=== PATIENT | male | born 1970 | race Caucasian/White ===

== ENCOUNTER 2018-11-21 17:09 | Inpatient (IN) | payer MEDICAID ==
[~2018-11-21] VITALS: Ht 175.3 cm; Wt 95.3 kg
[2018-11-21] MEDS ORDERED: MELATONIN 5 MG TABLET PO PRN (18:00)
[2018-11-21 19:55] VITALS: BP 159/96
[2018-11-21] MEDS: ATORVASTATIN CALCIUM 40 MG TABLET PO SCH (20:48)
[2018-11-21] MEDS: HEPARIN SODIUM,PORCINE 5,000 UNITS/ML VIAL SQ SCH (20:48)
[2018-11-21] MEDS: DOCUSATE SODIUM 100 MG CAPSULE PO SCH (20:48)
[2018-11-21] MEDS: SENNA 187 MG TABLET PO SCH (20:48)
[2018-11-21] MEDS: BACLOFEN 10 MG TABLET PO SCH (20:48)
[2018-11-21 23:29] VITALS: BP 155/98
[2018-11-21] MEDS: ACETAMINOPHEN 325 MG TABLET PO PRN (23:29)
[2018-11-22] MEDS ORDERED: HEPARIN SODIUM,PORCINE 5,000 UNITS/ML VIAL SQ SCH
[2018-11-22 06:41] LABS: BASOPHILS % (AUTO) 0.8 % (0.0-2.0); EOSINOPHILS % (AUTO) 4.2 % (1.0-6.0); HEMATOCRIT 44.9 % (41-53); HEMOGLOBIN 14.6 g/dL (13.5-17.5); LYMPHOCYTES # (AUTO) 2.6 K/uL (1.0-4.8); MEAN CORPUSCULAR HEMOGLOBIN 26.8 pg (26.0-34.0); MEAN CORPUSCULAR HGB CONC 32.5 G/dL (31.0-37.0); MEAN CORPUSCULAR VOLUME 82 fL (80-100); MONOCYTES # (AUTO) 0.6 K/uL (0.1-1.0); MONOCYTES % (AUTO) 6.2 % (2.0-9.0); NEUTROPHILS # (AUTO) 5.9 K/uL (1.8-7.7); NEUTROPHILS % (AUTO) 61.8 % (40.0-70.0); PLATELET COUNT (AUTO) 377 K/uL (150-450); RED BLOOD CELL COUNT(AUTO) 5.44 MIL/uL (4.50-5.90); RED CELL DISTRIBUTION WIDTH 15.9 % (11.5-14.5)
[2018-11-22 06:56] LABS: ALANINE AMINOTRANSFERASE 22 U/L (12-78); ALBUMIN 3.7 g/dL (3.4-5.0); ALKALINE PHOSPHATASE 136 U/L (46-116); ANION GAP 6 mmol/L (8-16); ASPARTATE AMINOTRANSFERASE 21 U/L (15-37); BILIRUBIN,TOTAL 0.4 mg/dL (0.1-1.0); CALCIUM, TOTAL 9.9 mg/dL (8.8-10.5); CARBON DIOXIDE 31 mmol/L (22-29); CHLORIDE 102 mmol/L (98-107); CREATININE 0.86 mg/dL (0.60-1.30); GLOMERULAR FILTR. RATE CALC > 60 mL/min (>60); GLUCOSE,RANDOM 89 mg/dL (70-110); POTASSIUM 3.8 mmol/L (3.5-5.1); SODIUM SERUM 139 mmol/L (136-145); TOTAL PROTEIN, SERUM 7.9 g/dL (6.4-8.2)
[2018-11-22 07:03] LABS: UREA NITROGEN, BLOOD 14 mg/dL (7-18)
[2018-11-22] MEDS: ASPIRIN 81 MG EC TABLET PO SCH (08:31)
[2018-11-22] MEDS: POLYETHYLENE GLYCOL 3350 17 GM PACKET PO SCH (08:31)
[2018-11-22] MEDS: DOCUSATE SODIUM 100 MG CAPSULE PO SCH ×2 (08:32→20:49)
[2018-11-22] MEDS: BACLOFEN 10 MG TABLET PO SCH ×3 (08:32→20:49)
[2018-11-22] MEDS: HEPARIN SODIUM,PORCINE 5,000 UNITS/ML VIAL SQ SCH ×3 (08:32→20:49)
[2018-11-22 09:01] VITALS: BP 150/93
[2018-11-22] MEDS: ACETAMINOPHEN 325 MG TABLET PO PRN ×3 (12:52→22:50)
[2018-11-22 16:53] VITALS: BP 117/85
[2018-11-22] MEDS: SENNA 187 MG TABLET PO SCH (20:49)
[2018-11-22] MEDS: ATORVASTATIN CALCIUM 40 MG TABLET PO SCH (20:49)
[2018-11-23 01:00] VITALS: BP 159/86
[2018-11-23] MEDS: ACETAMINOPHEN 325 MG TABLET PO PRN ×2 (02:16→10:46)
[2018-11-23 03:16] VITALS: BP 152/83
[2018-11-23] MEDS: OxyCODONE HCL 5 MG IR TABLET PO PRN ×2 (03:58→08:21)
[2018-11-23] MEDS ORDERED: LANSOPRAZOLE 30 MG CAPSULE PO SCH (07:00)
[2018-11-23] MEDS ORDERED: LANSOPRAZOLE 15 MG CAPSULE PO SCH (07:00)
[2018-11-23] MEDS: POLYETHYLENE GLYCOL 3350 17 GM PACKET PO SCH (08:20)
[2018-11-23 08:21] VITALS: BP 146/88
[2018-11-23] MEDS: DOCUSATE SODIUM 100 MG CAPSULE PO SCH (08:21)
[2018-11-23] MEDS: HEPARIN SODIUM,PORCINE 5,000 UNITS/ML VIAL SQ SCH (08:21)
[2018-11-23] MEDS: BACLOFEN 10 MG TABLET PO SCH (08:21)
[2018-11-23] MEDS: ASPIRIN 81 MG EC TABLET PO SCH (08:21)
[2018-11-23] MEDS ORDERED: LISINOPRIL 5 MG TABLET PO SCH (11:15)
[2018-11-23 12:17] VITALS: BP 151/90
[2018-11-23] MEDS: HydrALAZINE HCL 25 MG TABLET PO PRN ×2 (12:22→13:38)
[2018-11-23 13:25] VITALS: BP 150/85
== END 2018-11-23 14:30 | disposition short-term general hospital (02) | DRG 45 ==
LOC: 2WR 17:30
PROVIDERS: ADMIT Physical Medicine & Rehabilitation
DX: I63.9 Cerebral infarction, unspecified (principal); R13.10 Dysphagia, unspecified; F15.10 Other stimulant abuse, uncomplicated; I10 Essential (primary) hypertension; R27.0 Ataxia, unspecified; Z82.49 Family history of ischemic heart disease and other diseases of the circulatory system
CPT/HCPCS: 70450; 87081; 92523; 97116; 97163; 97167; 97530; 97535; J1644